=== PATIENT | female | born 1940 | race Caucasian/White ===

== ENCOUNTER → 2016-06-20 | Outpatient (CLI) | payer OTHER, MEDICARE ==
[~2016-06-20] VITALS: Ht 162.6 cm; Wt 66.5 kg
[~2016-06-20] MED LIST: ALPRAZOLAM1 M1 PO; ATORVASTATIN CA40 MG PO; BACLOFEN 10 MG10 MG PO; BACLOFEN 10MG T10 M1 PO; BACLOFEN 10MG T10 MG PO; BAYER CHEWABLE81 MG PO; CALCIUM 600 +1 EAC5 PO; CELEBREX 200 M200 MG PO; CYMBALTA30 MG PO; DURAGESIC1 EAC2 TRANSDERM; DURAGESIC1 EACH TD; FENTANYL 1100 MCG/HR TD; FENTANYL 1100 MCG/HR TP; FENTANYL PA12 MCG/H1 TP; FENTANYL PA12 MCG/HR TD; FENTANYL PA25 MCG/HR TD; FENTANYL PA25 MCG/HR TP; FENTANYL PA50 MCG/HR TD; FENTANYL PATCH75 MCG TD; FENTANYL PATCH75 MCG TP; HYDROCODON-ACE1 EAC5 PO; HYDROCODONE-APA1 TA1 PO; IBUPROFEN 200200 M1 PO; LEVAQUIN 500 M500 MG PO; LEXAPRO20 MG PO; LOPRESSOR 50 MG50 M1 PO; MAXZIDE-25 MG1 EACH PO; MOBIC15 MG PO; MULTIVITAMINS PO; NABUMETONE 500500 M1 PO; NICOTINE TRANSD21 M1 TD; NORCO 10-325 T1 EACH PO; NORCO 7.5-3251 EACH PO; PERCOCET 5-3251 EACH PO; PLAVIX 75 MG TA75 M1 PO; PLAVIX 75 MG TA75 MG PO; PREMARIN0.3 MG PO; PREMARIN0.625 MG PO; PYRIDIUM200 MG PO; REQUIP0.5 MG PO; TRIAMTERENE-HC1 EAC1 PO; TRIAMTERENE-HC1 EAC2 PO; VALIUM5 MG PO; VOLTAREN GEL 1100 G1; VOLTAREN GEL 1100 G1 TOP; VOLTAREN100 GM TOP; XANAX 0.5 MG0.5 MG PO; ZOCOR 20 MG TAB20 M1 PO
--- NOTE | ~2016-06-20 | HPC ---
[facility] [address] [place] [address] PAIN MANAGEMENT CONSULTATION Name: ROSI NEWBERRY Room #: REG SHAKIR Najera#: [id number] Admission: 06/20/16 Attend Phys: Alton Chaudhry DO Discharge: Date of : 42 Report #: [id number] THIS REPORT FOR: //name// CC: Eduardo Chaudhry This is a 75-year-old female well known to the pain clinic, typically treated for multiplicity of chronic pain concerns, requiring complex medication management. She is status post decompressive cervical, thoracic and lumbar laminectomies over the course of several years. She has been stable on Duragesic up and down 12 to 25 mcg, most recently 12 mcg q. 72 hours. Having decreased from 25 mcg this past March. Been using hydrocodone 7.5/325 for breakthrough pain. Returns to pain clinic today, we had a prolonged visit from 10:50-11:15. Greater than 50% of this 25-minute visit was spent counseling the patient, reviewing interval history. She is seen in the company of her daughter who is supportive. She notes pain has acutely gotten worse over the past month. She denies specific antecedent trauma and overuse. She had been in [place] for the past several months. Her has a fairly large sailboat upon which they spend their sánchez. She notes she did have a single epidural injection in [place] at a pain clinic assocaited with the surgeon who did her initial thoracic decompression, with absolutely no efficacy. I had prior given her single epidural injection, right at midline L4-L5 in April. At that time, the patient noted dramatic relief for, about 80%-90% for several months and pain gradually recurred. Today, she tells me alarming that she has been using 2 hydrocodone at that time, taking hydrocodone fairly aggressively with dwindling efficacy. We did discuss risk of opiate-induced hyperalgesia, concern for axial back pain associated with chronic nicotine habituation. The patient continues to smoke on a daily basis. We also talked about core strength, range of motion and general lifestyle changes to affect core strength and improved functional status. PHYSICAL EXAMINATION: GENERAL: Shows 75-year-old female, BMI is 25.2 kilograms per meter squared. VITAL SIGNS: Blood pressure is 150/78, pulse 65, respirations 16. EXTREMITIES: Rises from chair using armrest, moderately antalgic gait, even trace ataxia. Right hip flexion strength is diminished about 3/5, left is 4/5, dorsiflexion on the left and lower extremity extension strength is about 3/5. Straight leg raise is modestly positive on the right. Lily test is grossly positive on the right with tenderness over the right SI joint. Reviewing interventions in the past, again, the epidural injection in April [facility] [address] [place] [address] PAIN MANAGEMENT CONSULTATION Name: ROSI NEWBERRY Room #: REG SHAKIR Najera#: [id number] Admission: 06/20/16 Attend Phys: Alton Chaudhry DO Discharge: Date of : 42 Report #: [id number] had afforded very significant relief while a prior right SI joint injection back in September really had afforded nominal efficacy. ASSESSMENT: Symptomatic lumbar radiculopathy requiring complex medication management status post decompressive laminectomy, chronic pain syndrome, status post both cervical and thoracic decompressive laminectomies, opiate habituation and tolerance, chronic pain management and concern for SI joint/lumbosacral spondylosis mediated pain. RECOMMENDATION: After discussion with the patient today, we have elected to increase hydrocodone to 10/325 product with strong admonision NOT to take 2 tablets at a time, simply one tablet up to 4 times a day for breakthrough pain. Cautioned about daytime somnolence, mental acuity changes, constipation. We will renew Duragesic at 12 mcg q. 72 hours. I did take the liberty of writing for physical therapy for core strengthening and stabilization as well as gait training. We suggest water aerobics. We reviewed the fact that opiate medications are being used to provide analgesia adequate to support activities of daily living, not attempting to achieve a specific pain score on the 0-10 Visual Analog Scale. The current opiate medications are providing sufficient analgesia to allow the patient to participate in activities of daily living. The patient is not exhibiting any aberrant behavior suggestive of drug diversion. The patient is not having any adverse reactions to medications. The patient is not suffering from daytime somnolence or mental acuity changes. The patient is managing opiate-induced constipation with appropriate hfag-icy-mpphscj agents and dietary considerations. The patient was counseled on concern for caution with operating a motor vehicle while using opiate medications. A physical exam was performed and the patient's functional status was evaluated. All patients with back pain were advised against the bed rest greater than 4 days and were advised to return to normal activities. Pain score assessment was noted and the treatment plan was reviewed with the patient. All current medications, both prescribed and OTC were reviewed and reconciled on the electronic medical record. Tobacco screening was accomplished and smoking cessation was advised when indicated. BMI was noted and diet/exercise modification was recommended for all patients following outside normal parameters. I reviewed with the patient today their responsibilities to safeguard prescription medications, reviewed their responsibility to utilize medications only as prescribed by the physician. They are to seek and receive pain medications only from 1 physician group ( [facility]). They are to use 1 pharmacy and keep the clinic informed if they change pharmacies. Their responsibilities include making followup visits in a timely fashion and to avoid abrupt discontinuation of medication usage. Their responsibilities further [facility] [address] [place] [address] PAIN MANAGEMENT CONSULTATION Name: IMMANUELROSI HERNANDES ANGÉLICA Room #: REG [facility]..#: [id number] Admission: 06/20/16 Attend Phys: Alton Chaudhry DO Discharge: Date of : 42 Report #: [id number] include bringing their medications (bottles from the pharmacy with residual pills) to the visit for possible confirmation of pill counts and the patient understands it is their responsibility to submit to random drug screens to ensure both that the medications prescribed are present, and that no other controlled substances are present. All prescriptions provided today were generated electronically. ASSESSMENT: Acute exacerbation of lumbar radiculopathy. RECOMMENDATION: Lumbar epidural injection under fluoroscopy today. PROCEDURE: Lumbar epidural steroid injection. PROCEDURE NOTE: After both written and informed consent to include risk of spinal cord damage, increased pain, weakness and dural puncture, the patient was taken to the fluoroscopy suite, placed in the prone position. After sterile prep and drape, a skin wheal with lidocaine was raised. A 22-gauge epidural Tuohy needle was inserted in the midline at L4-L5 with good loss to resistance. Negative aspiration for cerebrospinal fluid or blood was noted. Then 1 mL of Omnipaque under biplanar fluoroscopy showed good spread within the epidural space. This was followed with 80 mg of triamcinolone plus 1 mL of 1.5% preservative-free Xylocaine, 0.5 mL Xylocaine was then injected to flush the needle; it was removed. The patient was monitored for an appropriate period of time and discharged in good and stable condition. <ELECTRONICALLY SIGNED> By: Alton Chaudhry DO 06/26/16 1031 1537 [id number] Alton Chaudhry DO /nt
[2016-06-20 10:39] VITALS: BP 150/78
== END | disposition home or self-care (01) ==
LOC: PAIN 05-31 07:09
DX: M54.16 Radiculopathy, lumbar region (principal); G89.4 Chronic pain syndrome; F11.20 Opioid dependence, uncomplicated; F17.210 Nicotine dependence, cigarettes, uncomplicated; M47.817 Spondylosis without myelopathy or radiculopathy, lumbosacral region; Z98.890 Other specified postprocedural states

== ENCOUNTER → 2016-07-25 | Outpatient (CLI) | payer OTHER, MEDICARE ==
[~2016-07-25] VITALS: Ht 162.6 cm; Wt 65.3 kg
--- NOTE | ~2016-07-25 | HPC ---
[facility] [place] [address] [place] [address] PAIN MANAGEMENT CONSULTATION Name: ROSI NEWBERRY Room #: REG SHAKIR Najera#: [id number] Admission: 07/25/16 Attend Phys: Alton Chaudhry DO Discharge: Date of : 42 Report #: [id number] THIS REPORT FOR: //name// CC: Eduardo Chaudhry The patient is a 75-year-old female well known to pain clinic, being treated for chronic pain syndrome requiring complex medication management. She is status post thoracolumbar fusion as well as a cervical decompression, component of SI joint pain. Last seen in pain clinic on 06/20/2016. Continued on baseline medication including Duragesic 12 mcg q. 72 hours with increased hydrocodone from 7.5 to 10 mg 1 tablet b.i.d. Continue physical therapy. We did an epidural injection at L4-L5 at that time. Prior urine drug screen on 01/26/2016, noted positive for Xanax, hydrocodone, fentanyl and Cymbalta as appropriate. The patient since I last saw her, is having increasing vascular claudication, was seen by Dr. Campbell and Dr. Kapoor. She ultimately had a new stent deployed in her left leg (prior stent in the right leg). She is on Plavix. She returns to pain clinic today noting medications are helping improve function. She had excellent relief from 60% to 80% following the epidural injection, but symptoms are beginning to recur. She is primarily complaining of pain in the right SI area. PHYSICAL EXAMINATION: Shows cranial nerves 2-12 grossly intact. Speech is fluent. Alert and oriented to person, place and time, judged to be a reasonable historian. Actually lower extremity strength is pretty symmetric. Straight leg raise is negative. Patellar and Achilles reflexes are preserved. Given ongoing radicular pain, however, we elected to order MRI of the thoracolumbar spine with and without contrast, looking for any possibly surgically correctable pathology to account for the ongoing axial back pain and lumbar radicular component. She does have positive Lily test on the right with some tenderness in the right SI area as well. We will proceed with right SI joint injection under fluoroscopy today. We reviewed the fact that opiate medications are being used to provide analgesia adequate to support activities of daily living, not attempting to achieve a specific pain score on the 0-10 Visual Analog Scale. The current opiate medications are providing sufficient analgesia to allow the patient to participate in activities of daily living. The patient is not exhibiting any aberrant behavior suggestive of drug diversion. The patient is not having any adverse reactions to medications. The patient is not suffering from daytime somnolence or mental acuity changes. The patient is managing opiate-induced constipation with appropriate bvog-nfd-plzqzay agents and dietary considerations. The patient was counseled on concern for caution with operating a motor vehicle [place] [address] PAIN MANAGEMENT CONSULTATION Name: MARTINEZ NEWBERRYY ANGÉLICA Room #: REG SHAKIR Najera#: [id number] Admission: 07/25/16 Attend Phys: Alton Chaudhry DO Discharge: Date of : 42 Report #: [id number] A physical exam was performed and the patient's functional status was evaluated. All patients with back pain were advised against the bed rest greater than 4 days and were advised to return to normal activities. Pain score assessment was noted and the treatment plan was reviewed with the patient. All current medications, both prescribed and OTC were reviewed and reconciled on the electronic medical record. Tobacco screening was accomplished and smoking cessation was advised when indicated. BMI was noted and diet/exercise modification was recommended for all patients following outside normal parameters. I reviewed with the patient today their responsibilities to safeguard prescription medications, reviewed their responsibility to utilize medications only as prescribed by the physician. They are to seek and receive pain medications only from 1 physician group ( [facility]). They are to use 1 pharmacy and keep the clinic informed if they change pharmacies. Their responsibilities include making followup visits in a timely fashion and to avoid abrupt discontinuation of medication usage. Their responsibilities further include bringing their medications (bottles from the pharmacy with residual pills) to the visit for possible confirmation of pill counts and the patient understands it is their responsibility to submit to random drug screens to ensure both that the medications prescribed are present, and that no other controlled substances are present. All prescriptions provided today were generated electronically. ASSESSMENT: Symptomatic chronic pain syndrome requiring complex medication management, status post thoracolumbar fusion, status post cervical decompressive laminectomy, axial back pain, sacroiliac joint dysfunction requiring complex medication management. RECOMMENDATIONS: 1. MRI as noted above. 2. Continue current medication unchanged, Duragesic 12 mcg q. 72 hours and hydrocodone 10/325 b.i.d. Follow up in 2 months for reevaluation. 3. Right SI joint injection under fluoroscopy, resumed water aerobics, physical therapy. PROCEDURE: Right SI joint injection under fluoroscopy. PROCEDURE NOTE: After written and informed consent was obtained, the patient was taken to the fluoroscopy suite and placed in prone position. After sterile prep and drape, skin wheal was raised. A 22-gauge stylet needle was placed in the right anterior SI joint. Negative aspiration was accomplished, 40 mg triamcinolone plus 2 mL of 0.5% preservative-free bupivacaine was injected into and around the joint. [place] removed. The area was cleansed, Band-Aids [facility] [address] [place] [address] PAIN MANAGEMENT CONSULTATION Name: ROSI NEWBERRY Room #: REG CL Dania#: [id number] Admission: 07/25/16 Attend Phys: Alton Chaudhry DO Discharge: Date of : 42 Report #: [id number] applied. The patient was monitored for an appropriate period of time and discharged in good and stable condition. <ELECTRONICALLY SIGNED> By: Alton Chaudhry DO 07/26/16 0720 1537 [id number] Alton Chaudhry DO /nt
== END ==
LOC: PAIN 07:10
DX: M53.3 Sacrococcygeal disorders, not elsewhere classified (principal); I10 Essential (primary) hypertension; F17.200 Nicotine dependence, unspecified, uncomplicated; F10.21 Alcohol dependence, in remission

== ENCOUNTER → 2016-09-16 | Outpatient (CLI) | payer OTHER, MEDICARE ==
[~2016-09-16] VITALS: Ht 162.6 cm; Wt 64.4 kg
[~2016-09-16] MED LIST changes: +FENTANYL PA25 MCG/HR TRANSDERM; +PERCOCET PO
--- NOTE | ~2016-09-16 | HPC ---
[facility] [address] [address] PAIN MANAGEMENT CONSULTATION Name: ROSI NEWBERRY Room #: REG Gerardo Najera#: [id number] Admission: 09/16/16 Attend Phys: Alton Chaudhry DO Discharge: Date of : 42 Report #: [id number] THIS REPORT FOR: //name// CC: Eduardo Chaudhry The patient is a 76-year-old female seen last month for ongoing lumbar radicular symptoms, SI joint dysfunction, status post both cervical and thoracic decompressive laminectomies, requiring complex medication management. She had been stable on Duragesic 12 mcg having weaned down from 25 mcg earlier in 2015. Hydrocodone 7.5/325 four a day was increased to 10/325 in May. That medication was renewed last month. She returns to pain clinic today 1 month early. She states that she and her were traveling in their RV and she has acute exacerbation of pain in right low back and buttock and hip. She denies specific radicular symptoms. I did order MRI with and without contrast and referred the patient for consultation to Dr. Vinay Medrano at [facility]. Unfortunately, they were unable to get the MRI due to the patient's inability to lie supine secondary to pain. Hence, the consultation was fairly nonproductive. They are scheduled to get MRI either late this week or early next week. She presents to pain clinic today with intractable pain, noting pain is "10" on a 0-10 visual analog scale, primarily right hip, buttock and leg. She states that she "does nothing" at home secondary to pain. She did start physical therapy here at [facility], doing water aerobics, she has been twice. PHYSICAL EXAMINATION: Shows 76-year-old female, quite frustrated. Vital signs generally stable as noted on the EMR. Rises from chair using armrest, moderately antalgic gait, pain in the right gluteal area and negative Lily test. Positive pain with resistance to extremity all rotation (positive pyriformis syndrome). Lower extremity strength is generally symmetric. Straight leg raise is nominally positive, exacerbating pain in the right hip, but no true neural tensioning symptoms are noted. Patellar and Achilles reflexes are preserved. Skin integument is intact. As noted above, no new diagnostic studies available for evaluation at this time. We reviewed the fact that opiate medications are being used to provide analgesia adequate to support activities of daily living, not attempting to achieve a specific pain score on the 0-10 Visual Analog Scale. The current opiate medications are providing sufficient analgesia to allow the patient to participate in activities of daily living. The patient is not exhibiting any aberrant behavior suggestive of drug diversion. The patient is not having any adverse reactions to medications. The patient is not suffering from daytime somnolence or mental acuity changes. The patient is managing opiate-induced constipation with appropriate yjdb-mpl-gjssclk agents and dietary considerations. The patient was counseled on concern for caution with operating [address] [address] PAIN MANAGEMENT CONSULTATION Name: ROSI NEWBERRY Room #: REG SHAKIR Najera#: [id number] Admission: 09/16/16 Attend Phys: Alton Chaudhry DO Discharge: Date of : 42 Report #: [id number] a motor vehicle while using opiate medications. A physical exam was performed and the patient's functional status was evaluated. All patients with back pain were advised against the bed rest greater than 4 days and were advised to return to normal activities. Pain score assessment was noted and the treatment plan was reviewed with the patient. All current medications, both prescribed and OTC were reviewed and reconciled on the electronic medical record. Tobacco screening was accomplished and smoking cessation was advised when indicated. BMI was noted and diet/exercise modification was recommended for all patients following outside normal parameters. I reviewed with the patient today their responsibilities to safeguard prescription medications, reviewed their responsibility to utilize medications only as prescribed by the physician. They are to seek and receive pain medications only from 1 physician group ( [facility]). They are to use 1 pharmacy and keep the clinic informed if they change pharmacies. Their responsibilities include making followup visits in a timely fashion and to avoid abrupt discontinuation of medication usage. Their responsibilities further include bringing their medications (bottles from the pharmacy with residual pills) to the visit for possible confirmation of pill counts and the patient understands it is their responsibility to submit to random drug screens to ensure both that the medications prescribed are present, and that no other controlled substances are present. All prescriptions provided today were generated electronically. ASSESSMENT: 1. Chronic pain syndrome requiring complex medication management status post both cervical and thoracic decompressive laminectomy with component of lumbar radiculopathy. Recommendations: The patient did bring back the "4 week release" Duragesic 12 mcg prescription and hydrocodone 325 tablets. After discussion with doctor and the patient, I have elected to take those prescriptions back and provide a new prescription for Duragesic increasing from 12-25 mcg q. 72 hours. We will rotate from hydrocodone 10/325 to Percocet 5/325 (again doubling the opiate from the Duragesic and hopefully lower dose p.r.n. opiate). 2. Acute right pyriformis syndrome. Recommendation: Right pyriformis injection under fluoroscopy today, again renewed the prescription for MRI of the lumbar spine with and without contrast, have them follow up with Dr. Vinay Medrano in early October. PROCEDURE: After informed consent was obtained, the patient was taken to the fluoroscopy suite and placed in prone position. After sterile prep and drape, skin wheal was raised. A 26-gauge stylet needle was placed to contact the inferior aspect of the right SI joint. Depth was then noted and needle was withdrawn, redirected in inferior direction. I then advanced inferior to the SI [facility] [address] [place] [address] PAIN MANAGEMENT CONSULTATION Name: ROIS NEWBERRY [facility] [id number] Admission: 09/16/16 Attend Phys: Alton Chaudhry DO Discharge: Date of : 42 Report #: [id number] joint and advanced about 1 cm further. AP and lateral projections showed good needle placement. A 1 mL of Omnipaque was injected, which showed spread within muscle stranding in the lateral and inferior direction of the piriformis muscle at this level. This was followed with 40 mg triamcinolone plus 2 mL of 0.5% preservative-free bupivacaine. Needle was removed. The area was cleansed, Band-Aids applied. Fluoroscopy time was 5 seconds. By: [id number] Alton Chaudhry DO /nt
[2016-09-16 14:19] VITALS: BP 142/92
== END | disposition home or self-care (01) ==
LOC: PAIN 11:19
DX: G89.4 Chronic pain syndrome (principal); G57.01 Lesion of sciatic nerve, right lower limb; I10 Essential (primary) hypertension; F17.210 Nicotine dependence, cigarettes, uncomplicated

== ENCOUNTER → 2016-10-11 | Outpatient (CLI) | payer OTHER, MEDICARE ==
[~2016-10-11] VITALS: Ht 162.6 cm; Wt 65.3 kg
[~2016-10-11] MED LIST changes: +SUBOXONE 8 MG-1 EAC3 SL
--- NOTE | ~2016-10-11 | HPC ---
[facility] [address] [place] [address] PAIN MANAGEMENT CONSULTATION Name: ROSI NEWBERRY Room #: REG SHAKIR Westfall.#: [id number] Admission: 10/11/16 Attend Phys: Alton Chaudhry DO Discharge: Date of : 42 Report #: [id number] THIS REPORT FOR: //name// CC: Eduardo Chaudhry The patient is a 76-year-old female, well known to the pain clinic, she has been treated for multiple pain concerns, axial back pain, lumbar radiculopathy, chronic pain syndrome, she is status post cervical and thoracic laminectomies, requiring complex medication management. Last visit 09/16/2016, we increased Duragesic from 12-25 mcg, decreased Percocet from 10 to 5, dispensed 100 tablets q. 4-6 hours as needed for pain, did piriformis injection at that time with some incremental improvement of baseline pain. She returns to pain clinic today with the company of her . We had a prolonged visit today from 11:38-12:15, greater than 50% of this time was spent counseling the patient. Of great concern, the patient tells me she has been going through her medicine more aggressively, she was actually using 2 of her Duragesic patches. We had trouble over the years with more aggressive use of medication. I think the patient does have somewhat of an unrealistic expectation regarding realistic pain control. She complains today of pain primarily low back, right buttock and hip. Again, the SI piriformis injection had afforded some relief. She rates her pain "6"on 0-10 visual analog scale, but she has gone through 100 Percocet 5/325 tablets prescribed approximately 3 weeks ago. The patient has appointments to see multiple surgeons trying to "fix" her axial back pain. I reviewed the images from [facility] accomplished 09/24/2016. Thoracic MRI notes exaggerated thoracic kyphosis, some anterolisthesis of T9 on 10, minimal compression deformities at T10-11, trace marrow edema at superior endplate of T11, though this is not correspond with acute pain at this level concerning for acute compression fracture. Her pain is much lower, more in the SI piriformis area. Post-surgical changes are noted with partial osseous fusion at T6-7 through T8-9. Again, probable chronic compression fracture at T11, grade 1 anterolisthesis at T9-10 with exaggerated thoracic kyphosis. No evidence of spinal canal stenosis or high grade neural foraminal stenosis. No masses are noted. Lumbar spine notes mild multilevel disk disease with facet arthrosis resulting in multilevel variable neural foraminal stenosis. There is no central canal stenosis and there is no high-grade neural foraminal stenosis noted. Again, no specific radicular symptoms noted compatible with acute neural foraminal compromise. L1-L2 does show a superimposed central disk protrusion with evidence of annular fissure, mild flattening of the thecal sac without definitive spinal stenosis. [address] [address] PAIN MANAGEMENT CONSULTATION Name: ROSI NEWBERRY Room #: REG SHAKIR Najera#: [id number] Admission: 10/11/16 Attend Phys: Alton Chaudhry DO Discharge: Date of : 42 Report #: [id number] PHYSICAL EXAMINATION: Shows agitated, anxious, tearful 76-year-old female. BMI is 24.7 kg/m2, blood pressure 147/88, pulse 72, and respirations 14. Rises from chair easily. Upper extremity strength is symmetric. Gait is tandem, some tenderness over the left low back SI and gluteal area. Lower extremity strength is symmetric. Straight leg raise is negative. Diffuse tenderness in the mid back. No discrete trigger points noted in particular over the T11 posterior spinous process. ASSESSMENT: Chronic pain syndrome requiring complex medication management and the patient with opiate habituation and tolerance, likely inappropriate expectation for pain relief, daily smoker, often counseled regarding correlation of nicotine use, axial back pain and osteoporosis. RECOMMENDATION: 1. After a long discussion with doctor and the patient today, we have elected to simply discontinue all p.r.n. opiate analgesics, discontinue the transcutaneous Duragesic patch. We will start patient on buprenorphine 8 mg sublingual b.i.d. The patient has exhibited multiple times aggressive use of opiate analgesics. She has opiate habituation and tolerance issues. She has a highly habituative personality, she cannot quit smoking. I stressed with her multiple times it is my concern for aggressive use of analgesics. Unfortunately, she is also in the conundrum that she has some component of chronic axial back pain. Recommendation as noted, 1. We will rotate to Suboxone 8/2 sublingual b.i.d. 2. Voltaren gel topically to low back. The patient is currently using Plavix, hence oral nonsteroidal anti-inflammatory medications are relatively contraindicated. 3. Recommend the patient follow up with Dr. Abdi Long at [facility] for consideration for back surgery. Again; however, my inspection of the diagnostic findings and physical exam, I really do not think she is a surgical candidate, but I will defer to those specific specialists. The patient is discharged in good and stable condition after prolonged visit. She was seen from 11:38-12:15, greater than 50% of time was spent counseling the patient. <ELECTRONICALLY SIGNED> By: Alton Chaudhry DO 10/14/16 [id number] Alton Chaudhry DO /nt
[2016-10-11 11:28] VITALS: BP 147/88
== END ==
LOC: PAIN 07:17
DX: G89.4 Chronic pain syndrome (principal); M54.16 Radiculopathy, lumbar region; M81.8 Other osteoporosis without current pathological fracture; I10 Essential (primary) hypertension; F17.210 Nicotine dependence, cigarettes, uncomplicated

== ENCOUNTER → 2016-11-08 | Outpatient (CLI) | payer OTHER, MEDICARE ==
[~2016-11-08] VITALS: Ht 162.6 cm; Wt 65.3 kg
[2016-11-08 11:24] VITALS: BP 134/77
== END | disposition home or self-care (01) ==
LOC: PAIN 05:44
DX: G89.29 Other chronic pain (principal); F17.210 Nicotine dependence, cigarettes, uncomplicated; M54.5 Low back pain; M25.551 Pain in right hip

== ENCOUNTER → 2017-02-07 | Outpatient (CLI) | payer OTHER, MEDICARE ==
[~2017-02-07] VITALS: Ht 162.6 cm; Wt 68.5 kg
--- NOTE | ~2017-02-07 | HPC ---
[facility] [address] [place] [address] PAIN MANAGEMENT CONSULTATION Name: ROSI NEWBERRY Room #: REG Gerardo Westfall.#: [id number] Admission: 02/07/17 Attend Phys: Alton Chaudhry DO Discharge: Date of : 42 Report #: [id number] THIS REPORT FOR: //name// CC: Eduardo Chaudhry DATE OF SERVICE: 02/07/2017 HISTORY OF PRESENT ILLNESS: The patient is a 76-year-old female, long treated for chronic pain syndrome requiring high risk complex medication management, status post thoracic, lumbar and cervical decompressive surgeries and fusion over the many years. Component of SI mediated pain. She has had trouble with opiate analgesic including aggressive use, habituation and sedation. We had ultimately rotated to Suboxone 01/15, 06/17-1 film strip the morning with 1 at night. She returns to Pain Clinic today. She is doing dramatically better than she never has. She is seen in the company of a retired dentist, who is very supportive. They note she is much more alert, engaged and oriented. She rates the pain as 3 on a VAS. They were able to pack up most of their old home. They moved to a smaller [facility] home. With increasing activity, she still notes pain has significantly improved. She is doing most activities that she needs. She has had 1 or 2 days in the past 2 months where she "slept for 20 hours." Prior, she was in bed for 12 to 15 hours on many days due to opiate sedation. PHYSICAL EXAMINATION: Shows a 76-year-old female, alert and oriented to person, place, and time, judged to be a reasonable historian. BMI is 25.9 kg/m2. Vital signs are stable as noted in the EMR. Cervical range of motion is actually fairly good. Diffuse tenderness in the back. There are no discrete trigger points noted. Multiple surgical scars compatible with history. Upper lower extremity strength is symmetric. Gait is tandem. We reviewed the fact that opiate medications are being used to provide analgesia adequate to support activities of daily living, not attempting to achieve a specific pain score on the 0-10 Visual Analog Scale. The current opiate medications are providing sufficient analgesia to allow the patient to participate in activities of daily living. The patient is not exhibiting any aberrant behavior suggestive of drug diversion. The patient is not having any adverse reactions to medications. The patient is not suffering from daytime somnolence or mental acuity changes. The patient is managing opiate-induced constipation with appropriate ktzh-ifi-ejkhtso agents and dietary considerations. The patient was counseled on concern for caution with operating a motor vehicle while using opiate medications. A physical exam was performed and the patient[place] [address] PAIN MANAGEMENT CONSULTATION Name: ROSI NEWBERRY Room #: REG SHAKIR Najera#: [id number] Admission: 02/07/17 Attend Phys: Alton Chaudhry DO Discharge: Date of : 42 Report #: [id number] All patients with back pain were advised against the bed rest greater than 4 days and were advised to return to normal activities. Pain score assessment was noted and the treatment plan was reviewed with the patient. All current medications, both prescribed and OTC were reviewed and reconciled on the electronic medical record. Tobacco screening was accomplished and smoking cessation was advised when indicated. BMI was noted and diet/exercise modification was recommended for all patients following outside normal parameters. I reviewed with the patient today their responsibilities to safeguard prescription medications, reviewed their responsibility to utilize medications only as prescribed by the physician. They are to seek and receive pain medications only from 1 physician group ( [facility]). They are to use 1 pharmacy and keep the clinic informed if they change pharmacies. Their responsibilities include making followup visits in a timely fashion and to avoid abrupt discontinuation of medication usage. Their responsibilities further include bringing their medications (bottles from the pharmacy with residual pills) to the visit for possible confirmation of pill counts and the patient understands it is their responsibility to submit to random drug screens to ensure both that the medications prescribed are present, and that no other controlled substances are present. All prescriptions provided today were generated electronically. Last urine drug screen on 01/26/2016 was positive for prescribed medications at that time. ASSESSMENT: Chronic pain syndrome requiring high risk complex medication management. The patient has had problems with opiate habituation and tolerance in the past, status post cervical, thoracic and lumbar decompressive surgeries. RECOMMENDATIONS: After discussion with elected to continue Suboxone 8/2 film strips 1/2-1 in the morning and 1 at night. I have taken the liberty of writing for 60 film strips with the second prescription to be release in 4 weeks. I did use the X CARLOS number. The patient is doing very well. She does get counseling and is remarkably stable at present. We will not make any changes at this time. It is noteworthy that I gave her prescription for ultimately 120 Suboxone strips 3 months ago. She is using them very judiciously, typically a 1/2 in the morning and 1/2-1 at night. Discharged in good and stable condition. By: [id number] Alton Chaudhry, DO /nt
[2017-02-07 13:41] VITALS: BP 129/69
== END | disposition home or self-care (01) ==
LOC: PAIN 01-13 07:24
DX: Z76.0 Encounter for issue of repeat prescription (principal); G89.4 Chronic pain syndrome; M53.3 Sacrococcygeal disorders, not elsewhere classified; F17.210 Nicotine dependence, cigarettes, uncomplicated; Z88.8 Allergy status to other drugs, medicaments and biological substances; Z79.82 Long term (current) use of aspirin; Z79.899 Other long term (current) drug therapy; Z98.890 Other specified postprocedural states; Z79.891 Long term (current) use of opiate analgesic

== ENCOUNTER → 2017-05-19 | Outpatient (CLI) | payer OTHER, MEDICARE ==
[~2017-05-19] VITALS: Ht 162.6 cm; Wt 67.3 kg
[~2017-05-19] MED LIST changes: +CELEBREX 200 M200 M1 PO
--- NOTE | ~2017-05-19 | HPC ---
[facility] [address] [address] PAIN MANAGEMENT CONSULTATION Name: ROSI NEWBERRY Room #: REG SHAKIR Westfall.#: [id number] Admission: 05/19/17 Attend Phys: Alton Chaudhry DO Discharge: Date of : 42 Report #: [id number] THIS REPORT FOR: //name// CC: Eduardo Chaudhry HISTORY OF PRESENT ILLNESS: The patient is a 76-year-old female, long known to the pain clinic. She has been treated for chronic pain requiring high risk complex medication management. She is status post thoracic fusion, status post cervical fusion, chronic SI mediated pain requiring high risk complex medication management. Last seen in the pain clinic on 02/07/2017. Three and half months ago, she was given Suboxone 8/2 to take one to two tablets sublingual a day. She had prior been on high dose opiates for many years. She was on a baseline fentanyl patch with trouble, maintaining moderate dose of p.r.n. hydrocodone or Percocet for breakthrough pain. She returns to the pain clinic today. She is alert, oriented and doing remarkably well. She notes her pain is reasonably well controlled, in fact rates it a 1 on a VAS. She is using Suboxone 8/2, typically 1/2 film strips b.i.d. With this, she has been remarkably stable. Her back pain is actually fairly nominal. Her current complaint today is primarily right hip and buttock. PHYSICAL EXAMINATION: Shows pleasant 76-year-old female, BMI is 25.5 kilograms per meter squared. Vital signs stable as noted in the EMR. Alert and oriented to person, place and time, judged to be a reasonable historian. Rises from chair using armrest. Gait is tandem. Lower extremity strength is preserved. She does have some tenderness in the right flank and SI area, though no discrete trigger points are noted. Lower extremity strength is symmetric. Straight leg raise is negative. Deep tendon reflexes are preserved. Lily test is modestly positive on the right, really not significant to the point that I would consider interventional therapy. We reviewed the fact that opiate medications are being used to provide analgesia adequate to support activities of daily living, not attempting to achieve a specific pain score on the 0-10 Visual Analog Scale. The current opiate medications are providing sufficient analgesia to allow the patient to participate in activities of daily living. The patient is not exhibiting any aberrant behavior suggestive of drug diversion. The patient is not having any adverse reactions to medications. The patient is not suffering from daytime somnolence or mental acuity changes. The patient is managing opiate-induced constipation with appropriate bewv-qck-zatzkre agents and dietary considerations. The patient was counseled on concern for caution with operating a motor vehicle while using opiate medications. A physical exam was performed and the patient's functional status was evaluated. [address] [address] PAIN MANAGEMENT CONSULTATION Name: ROSI NEWBERRY Room #: REG [facility] Dania#: [id number] Admission: 05/19/17 Attend Phys: Alton Chaudhry DO Discharge: Date of : 42 Report #: [id number] All patients with back pain were advised against the bed rest greater than 4 days and were advised to return to normal activities. Pain score assessment was noted and the treatment plan was reviewed with the patient. All current medications, both prescribed and OTC were reviewed and reconciled on the electronic medical record. Tobacco screening was accomplished and smoking cessation was advised when indicated. BMI was noted and diet/exercise modification was recommended for all patients following outside normal parameters. I reviewed with the patient today their responsibilities to safeguard prescription medications, reviewed their responsibility to utilize medications only as prescribed by the physician. They are to seek and receive pain medications only from 1 physician group ( [facility]). They are to use 1 pharmacy and keep the clinic informed if they change pharmacies. Their responsibilities include making followup visits in a timely fashion and to avoid abrupt discontinuation of medication usage. Their responsibilities further include bringing their medications (bottles from the pharmacy with residual pills) to the visit for possible confirmation of pill counts and the patient understands it is their responsibility to submit to random drug screens to ensure both that the medications prescribed are present, and that no other controlled substances are present. All prescriptions provided today were generated electronically. ASSESSMENT: Chronic pain syndrome, axial back pain status post both cervical and thoracic decompressive laminectomies and fusion, high risk complex medication management, stable on baseline medication for quite some time. The patient and her are planning to travel to [place] for 3 to 4 months. He is a retired dentist. They have family here in town and in fact are getting ready to have another grandchild in the spring. After a long discussion with the patient, I would like to continue Suboxone 8/2 sublingual. I have taken the liberty of writing for 60 tablets (film strips) to release today and another 60 to be released in 4 weeks (early release actually 06/14/2017 for out of state travel). This will enable 120 sublingual Suboxone 8/2 film strips. This should last the patient approximately 4 months. The patient has shown excellent restrain with this medication. She has done remarkably well. She has shown no evidence of diversion or escalation of dose. I will be happy to write medication as noted above. Follow up in 4 months as needed, earlier if symptoms change. Discharged in good and stable condition. <ELECTRONICALLY SIGNED> By: Alton Chaudhry DO 05/21/17 0834 [id number] Alton Chaudhry DO /nt
[2017-05-19 13:17] VITALS: BP 118/65
== END ==
LOC: PAIN 07:04
DX: G89.4 Chronic pain syndrome (principal); M54.9 Dorsalgia, unspecified; Z98.890 Other specified postprocedural states; Z79.899 Other long term (current) drug therapy